=== PATIENT | male | born 1965 | race Caucasian/White ===

== ENCOUNTER 2022-11-06 14:47 | Emergency (ER) | payer OTHER ==
[~2022-11-06] VITALS: Ht 177.8 cm; Wt 79.4 kg
[2022-11-06] MEDS ORDERED: VENTOLIN HFA18 GM INH (19:54)
[2022-11-06] MEDS ORDERED: ONDANSETRON ODT8 MG PO (19:54)
[2022-11-06] MEDS ORDERED: CYCLOBENZAPRINE10 MG PO (19:54)
== END 2022-11-06 20:29 | disposition home or self-care (01) ==
LOC: ED 14:47
DX: J10.1 Influenza due to other identified influenza virus with other respiratory manifestations (principal); Z20.822 Contact with and (suspected) exposure to COVID-19; Z87.891 Personal history of nicotine dependence
CPT/HCPCS: 71045; 87502; 96372; 99283-25; A9270; C9803; J1885; U0003